=== PATIENT | male | born 1955 | race Hispanic/Latino ===

== ENCOUNTER 2019-04-22 11:41 | Emergency (ER) | payer MEDICARE ==
[2019-04-22 12:28] LABS: #Basophils 0.1 thou/uL (0.0-0.2); #Eosinphils 0.1 thou/uL (0.0-0.7); #Monocytes 0.4 thou/uL (0.11-0.59); #Neutrophils 4.2 thou/uL (1.40-6.50); %Basophils 0.9 % (0.0-1.0); %Eosinophils 1.8 % (0.0-10.0); %Lymphocytes 29.2 % (21.0-51.0); %Neutrophils 62.1 % (42.0-75.0); Mean Corpuscular HGB CONC 33.6 g/dL (32.0-36.0); Mean Corpuscular Hemoglobin 28.6 pg (27.0-31.0); Mean Platelet Volume 7.9 fL (7.4-10.4); Platelet Count 122 thou/uL (130-400); RBC Distribution Width 15.4 % (11.5-14.5); Red Blood Cell (RBC) Count 4.19 mill/uL (4.70-6.10); White Blood Cell (WBC) Count 6.7 thou/uL (4.8-10.8)
== END 2019-04-22 13:37 | disposition home or self-care (01) ==
LOC: ERS 11:41
DX: H11.31 Conjunctival hemorrhage, right eye (principal)
CPT/HCPCS: 36415; 85025; 99283

== ENCOUNTER 2019-04-22 23:41 | Emergency (ER) | payer MEDICARE ==
[2019-04-23] MEDS ORDERED: Ibuprofen 200 MG TAB ONE (01:29)
[2019-04-23] MEDS ORDERED: HYDROcodone/Acetaminophen 5/325 mg Tablet ONE (07:13)
[2019-04-23] MEDS ORDERED: Acetaminophen 500 MG TAB ONE (07:13)
--- NOTE | 2019-04-23 08:42 | RAD ---
EXAM: XR Knee Rt 4 View STANDARD PROVIDED CLINICAL HISTORY: Pain FINDINGS: There is no evidence for fracture or other acute osseous abnormality. Alignment appears anatomic. Masha nt spaces appear preserved. Mild knee joint effusion. Vascular calcifications. IMPRESSION: No evidence for an acute osseous abnormality. If there is persistent clinical concern, conservative m anagement and follow-up imaging advised.
--- NOTE | 2019-04-23 08:49 | RAD ---
Exam:4 views left hand HISTORY: Pain. Injury. COMPARISON: None FINDINGS: Mildly displaced fracture involving the base of the fifth metacarpal. Associated soft tissu e swelling. Additional fractures. IMPRESSION: Proximal fifth metacarpal fracture. Results study discussed with Dr. Clark 04/23/2019 at 8:46 AM Code CR
== END 2019-04-23 08:03 | disposition home or self-care (01) ==
LOC: ERS 23:41
DX: S62.315A Displaced fracture of base of fourth metacarpal bone, left hand, initial encounter for closed fracture (principal); S80.01XA Contusion of right knee, initial encounter; Z79.899 Other long term (current) drug therapy; W01.198A Fall on same level from slipping, tripping and stumbling with subsequent striking against other object, initial encounter
CPT/HCPCS: 26600

== ENCOUNTER 2020-01-12 18:36 | Inpatient (IN) | payer MEDICARE ==
[2020-01-12 18:51] LABS: #Basophils 0.1 thou/uL (0.0-0.2); #Eosinphils 0.1 thou/uL (0.0-0.7); #Lymphocytes 2.1 thou/uL (1.20-3.40); #Monocytes 0.7 thou/uL (0.11-0.59); %Basophils 0.9 % (0.0-1.0); %Eosinophils 1.3 % (0.0-10.0); %Lymphocytes 20.8 % (21.0-51.0); %Monocytes 7.3 % (0.0-10.0); %Neutrophils 69.8 % (42.0-75.0); Hemoglobin 13.7 g/dL (14.0-18.0); Mean Corpuscular HGB CONC 33.7 g/dL (32.0-36.0); Mean Corpuscular Hemoglobin 29.4 pg (27.0-31.0); Mean Corpuscular Volume 87.2 fL (78.0-98.0); Mean Platelet Volume 7.9 fL (7.4-10.4); Platelet Count 172 thou/uL (130-400); RBC Distribution Width 14.9 % (11.5-14.5); Red Blood Cell (RBC) Count 4.65 mill/uL (4.70-6.10); White Blood Cell (WBC) Count 10.1 thou/uL (4.8-10.8)
[2020-01-12 18:58] LABS: INR-International Normal Ratio 0.9; PTT 26.8 SEC (22.9-36.1); Prothrombin Time 12.3 SEC (12.0-14.7)
--- NOTE | 2020-01-12 19:04 | CT ---
Exam: Head CT without contrast HISTORY: Sudden weakness, x2 days. Woke up this morning with left facial numbness. COMPARISON: none FINDINGS: Hemorrhage: No intraparenchymal hemorrhage or extra-axial hematoma. Brain parenchyma: Cortical calvillo-white matter differentiation is preserved. No mass effect or midline shift. Basilar cisterns are patent.0.4 cm hypodensity in the right caudate nucleus. Indeterminate lacunar infarct. Ventricular system: Ventricles and sulci are patent and symmetric. Calvarium: Intact. Sinuses and mastoid air cells: Minimal right sphenoid sinus disease. Adequate mastoid air cell aerati on. IMPRESSION: 1. Indeterminate right caudate nucleus lacunar infarct. 2. Results of study discussed with Dr. Clark 01/12/2020 at 7:01 PM Code CR
[2020-01-12 19:09] LABS: ALT (SGPT) 11 U/L (8-55); AST (SGOT) 11 U/L (5-34); Albumin 4.4 g/dL (3.4-4.8); Alkaline Phosphatase 69 U/L (40-110); Anion Gap 13 mmol/L (10-20); BUN (Urea Nitrogen) 10 mg/dL (8.4-25.7); CK (CPK) 65 U/L (30-200); Calc. Creatinine Clearance 0 mL/min (70-130); Calcium 8.9 mg/dL (7.8-10.44); Carbon Dioxide 23 mmol/L (23-31); Chloride 106 mmol/L (98-107); Estimated GFR-MDRD 64; Globulin 2.6 g/dL (2.4-3.5); Glucose 200 mg/dL (80-115); Potassium 3.5 mmol/L (3.5-5.1); Sodium 138 mmol/L (136-145)
[2020-01-12] MEDS ORDERED: Aspirin 325 MG TAB ONE (19:57)
[2020-01-12] MEDS ORDERED: hydrALAZINE 20 MG/ML VIAL SLOW IVP PRN (20:58)
[2020-01-12] MEDS ORDERED: Labetalol HCl 100 MG/20 ML VIAL SLOW IVP PRN (20:58)
[2020-01-12] MEDS ORDERED: Dextrose 5% in Water 1,000 ML IV PRN (21:02)
[2020-01-12] MEDS ORDERED: HumaLOG 300 UNITS/3 ML VIAL SC PRN ×2 (21:02)
[2020-01-12] MEDS ORDERED: Dextrose 50% Abboject 50 ML SYRINGE SLOW IVP PRN (21:02)
--- NOTE | 2020-01-12 21:21 | PDOC.HHP ---
Hospitalist HPI - History of Present Illness Left sided weakness History of Present Illness: PCP: Sarah Zambrano The patient is a 64/M with PMH significant for CML (taking Tasigna) that presents to the ER for the above complaint. The patient reports developing lip and tongue numbness Wednesday evening while eating chips with spicy dip. He did not think anything of this so he went to bed. The next morning, he awoke with some left hand weakness, stating that he could not hold his coffee cup steady. His spouse noticed that he was "stumbling around" and asked "are you drinking?" , knowing that he does not drink alcohol, but had this unsteady gait. The patient symptoms persisted and the next morning, he and his noticed some slurring with his speech, so they came to the ER. The patient has been taking Tasigna since September of 2019, and states that his oncologist at [facility] told him that the medication will raise your blood sugar and that there is risk of CVA and [place]. The patient denies any fever or chills. Denies any chest pain or sob. Denies any abdominal pain, n/v/d. Has no other complaints at this time. ED Course: NIH 3, LUE, LLE and left facial droop CT brain + for indeterminant right caudate nucleus lacunar infarct Glucose 202 CMP and CBC unremarkable Given: ASA 324mg po x 1 dose Allergies: Codeine Home Meds: 1. Metformin 750mg po q evening 2. Tasigna 200mg, Take 2 tablets BID 3. Flomax 0.4mg po q am Hospitalist ROS - Review of Systems Constitutional: denies: fever, chills, sweats, weakness, malaise, other Eyes: denies: pain, vision change, conjunctivae inflammation, eyelid inflammation, redness, other ENT: reports: other (lip and tongue numbness) Respiratory: denies: cough, dry, shortness of breath, hemoptysis, SOB with excertion, pleuritic pain, sputum, wheezing, other Cardiovascular: denies: chest pain, palpitations, orthopnea, paroxysmal noc. dyspnea, edema, light headedness, other Gastrointestinal: denies: nausea, vomiting, abdominal pain, diarrhea, constipation, melena, hematochezia, other Genitourinary: denies: dysuria, frequency, incontinence, hematuria, retention, other Musculoskeletal: denies: neck pain, shoulder pain, arm pain, back pain, hand pain, leg pain, foot pain, other Skin: denies: rash, lesions, radha, bruising, other Neurological: reports: weakness, numbness, change in speech (Left sided weakness ) Hospitalist History - Past Medical History Source: patient Heme/Onc: reports: Cancer (CML in remission) Renal/: reports: Benign prostatic enlarg. 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 Activity level: independent ambulation - Exam General Appearance: NAD, awake alert Eye: anicteric sclera ENT: normocephalic atraumatic Neck: supple, no lymphadenopathy Heart: RRR, no murmur, no gallops, no rubs, normal peripheral pulses Respiratory: CTAB, no wheezes, no rales, no tachypnea Gastrointestinal: soft, non-tender, non-distended, normal bowel sounds, no guarding, no rigidity Extremities: no cyanosis, no edema Skin: no rashes Neurological - other findings: GCS 15, NIH 3 for left facial droop and LUE and LLE drift Musculoskeletal - other findings: 4/5 LUE and LLE power scale Psychiatric: normal affect, A&O x 3 Hospitalist Results - Labs Result Diagrams: 01/12/20 18:41 01/12/20 18:41 Lab results: WBC 10.1 thou/uL (4.8-10.8) 01/12/20 18:41 Hgb 13.7 g/dL (14.0-18.0) L 01/12/20 18:41 Hct 40.6 % (42.0-52.0) L 01/12/20 18:41 MCV 87.2 fL (78.0-98.0) 01/12/20 18:41 Plt Count 172 thou/uL (130-400) 01/12/20 18:41 Neutrophils % 69.8 % (42.0-75.0) 01/12/20 18:41 Sodium 138 mmol/L (136-145) 01/12/20 18:41 Potassium 3.5 mmol/L (3.5-5.1) 01/12/20 18:41 Chloride 106 mmol/L (98-107) 01/12/20 18:41 Carbon Dioxide 23 mmol/L (23-31) 01/12/20 18:41 BUN 10 mg/dL (8.4-25.7) 01/12/20 18:41 Creatinine 1.15 mg/dL (0.7-1.3) 01/12/20 18:41 Glucose 200 mg/dL (80-115) H 01/12/20 18:41 Calcium 8.9 mg/dL (7.8-10.44) 01/12/20 18:41 Total Bilirubin 1.0 mg/dL (0.2-1.2) 01/12/20 18:41 AST 11 U/L (5-34) 01/12/20 18:41 ALT 11 U/L (8-55) 01/12/20 18:41 Alkaline Phosphatase 69 U/L (40-110) 01/12/20 18:41 Creatine Kinase 65 U/L (30-200) 01/12/20 18:41 Troponin I Less than 0.010 ng/mL (< 0.028) 01/12/20 18:41 Serum Total Protein 7.0 g/dL (5.8-8.1) 01/12/20 18:41 Albumin 4.4 g/dL (3.4-4.8) 01/12/20 18:41 - EKG Interpretation EKG: NSR 77 with 1 degree AVB - Radiology Interpretation CT scan - head Status: report reviewed by nm Hospitalist H&P A/P - Problem (1) CVA (cerebral vascular accident) Code(s): I63.9 - CEREBRAL INFARCTION, UNSPECIFIED Status: Acute Assessment and Plan: Admit to stroke unit, inpatient status Expected length of stay > [address] + right caudate nucleus lacunar infarct Received ASA in ER Will continue ASA and start high intensity statin Will order MRI, CD US, and echocardiogram Consult stroke team Check TSH, FLP, UDS (2) Elevated serum glucose Code(s): R73.9 - HYPERGLYCEMIA, UNSPECIFIED Status: Chronic Assessment and Plan: Likely secondary to oncology medication Will hold Tasigna Will Check HA1C and start sliding scale AC/HS accuchecks. (3) Marijuana use Code(s): F12.90 - CANNABIS USE, UNSPECIFIED, UNCOMPLICATED Status: Chronic Assessment and Plan: Smokes 2 per day Discussed marijuana cessation (4) CML in remission Code(s): C92.11 - CHRONIC MYELOID LEUKEMIA, BCR/ABL-POSITIVE, IN REMISSION Status: Chronic Assessment and Plan: Patient taking Tasigna since September 2019 Has known risk of CVA and [place] Will hold medication for now - Plan Plan: GI and DVT prophylaxis Full Code DPOA is spouse Madeline Apple at [phone] Egan.
[2020-01-12 21:50] LABS: Hemoglobin A1c 6.6 % (4.0-6.0)
[2020-01-12] MEDS: Atorvastatin Calcium 40 MG TAB PO SCH (22:17)
[2020-01-12] MEDS ORDERED: Acetaminophen 325 MG TAB PO PRN (22:33)
[2020-01-12 22:39] VITALS: BMI 22.9
[2020-01-13 01:22] LABS: Amphetamine Not Detected (NotDetected); Barbiturates Screen Not Detected (NotDetected); Benzodiazepine Screen Not Detected (NotDetected); Cocaine Metabolite Screen Not Detected (NotDetected); Medtox Control Line Valid? VALID (VALID); Medtox Reader # READER 4; Methadone Not Detected (NotDetected); Methamphetamine Not Detected (NotDetected); Opiate Screen Not Detected (NotDetected); Oxycodone Screen Not Detected (NotDetected); Phencyclidine (PCP) Not Detected (NotDetected); THC/Cannabinoid Screen Detected (NotDetected); Tricyclic Screen Not Detected (NotDetected)
[2020-01-13 04:34] LABS: #Basophils 0.1 thou/uL (0.0-0.2); #Eosinphils 0.3 thou/uL (0.0-0.7); #Lymphocytes 2.2 thou/uL (1.20-3.40); #Monocytes 0.7 thou/uL (0.11-0.59); #Neutrophils 5.3 thou/uL (1.40-6.50); %Basophils 0.8 % (0.0-1.0); %Eosinophils 3.4 % (0.0-10.0); %Lymphocytes 26.1 % (21.0-51.0); %Monocytes 8.1 % (0.0-10.0); %Neutrophils 61.6 % (42.0-75.0); Hemoglobin 13.1 g/dL (14.0-18.0); Mean Corpuscular HGB CONC 33.4 g/dL (32.0-36.0); Mean Corpuscular Hemoglobin 29.5 pg (27.0-31.0); Mean Corpuscular Volume 88.3 fL (78.0-98.0); Mean Platelet Volume 8.2 fL (7.4-10.4); Platelet Count 156 thou/uL (130-400); Red Blood Cell (RBC) Count 4.44 mill/uL (4.70-6.10); White Blood Cell (WBC) Count 8.6 thou/uL (4.8-10.8)
[2020-01-13 04:56] LABS: Anion Gap 13 mmol/L (10-20); BUN (Urea Nitrogen) 10 mg/dL (8.4-25.7); Calc. Creatinine Clearance 90 mL/min (70-130); Calcium 8.7 mg/dL (7.8-10.44); Carbon Dioxide 22 mmol/L (23-31); Cardiac Risk 6.6 (Less than 4.5); Chloride 107 mmol/L (98-107); Cholesterol 166 mg/dl (< 200 Desired); Estimated GFR-MDRD Greater than 90; Glucose 117 mg/dL (80-115); HDL Cholesterol 25 mg/dL (>60 Neg Risk); LDL Cholesterol, Calculated 120 mg/dL; Potassium 3.4 mmol/L (3.5-5.1); Sodium 139 mmol/L (136-145); Triglycerides 103 mg/dL (Less than 150)
[2020-01-13] MEDS ORDERED: Lorazepam 2 MG/ML VIAL SLOW IVP SCH (06:45)
[2020-01-13] MEDS: Aspirin 325 mg Enteric Coated Tablet PO SCH (08:50)
[2020-01-13] MEDS: Famotidine 20 MG TAB PO SCH ×2 (08:50→21:06)
[2020-01-13] MEDS: Enoxaparin Sodium 40 MG/0.4 ML SYRINGE SC SCH (08:50)
--- NOTE | 2020-01-13 10:19 | ULT ---
CAROTID DUPLEX ULTRASOUND: FINDINGS: Real-time color doppler evaluation of the right and left carotid systems was performed. This shows fairly prominent plaque formation, calcified plaque bilaterally at the carotid bifurcation s. On the right side, peak systolic velocities of the common carotid were 85 cm/sec. Internal carotid ve locity 61 cm/sec, and external carotid velocities 57 cm/sec. Left side showed peak systolic velocities of the common carotid 98 cm/sec, internal carotid velocitie s 65 cm/sec, external carotid velocities 110 cm/sec. Vertebral flow is antegrade on the right. The left vertebral is not visualized. IMPRESSION: 1. No evidence of hemodynamically significant stenosis of either internal carotid artery. 2. Nonvisualization of the left vertebral. POS: NANI
[2020-01-13] MEDS ORDERED: Potassium Chloride 20 MEQ TAB PO SCH (11:30)
--- NOTE | 2020-01-13 11:35 | MRI ---
MRI BRAIN PERFORMED WITHOUT CONTRAST ENHANCEMENT: History: Left sided weakness x 2 days, left facial numbness. Comparison: CT performed yesterday. FINDINGS: The ventricular and cisternal systems shows fairly age appropriate change. The diffusion weighted seq uence shows no signs of hemorrhage. A small lacunar infarct is seen in the right caudate nucleus romi on. It does not appear acute. There does appear to be an area of restricted diffusion within the righ t cerebral peduncle compatible with an acute area of infarct. This would be related to the posterior circulation. Supply being from a posterior communicating branch. There is no mass effect. The pituita ry is unremarkable in appearance. Mastoid air cells and visualized sinuses are clear. IMPRESSION: 1. Focus of restricted diffusion in the right cerebral peduncle, consistent with an area of acute inf arct. This is a small focus, less than 1 cm in size. In this location this would be related to the po sterior circulation. POS: NANI
--- NOTE | 2020-01-13 19:15 | PDOC.HOSPP ---
- Subjective Encounter Date: 01/13/20 Encounter Time: 11:00 Subjective: The patient was noted to be very drowsy this morning. Patient received IV ativan prior to MRI. When OT evaluated patient he woke up and was oriented time s four. In the afternoon, the patient fell to his knees per nursing, did not hit head or pass out. - Objective Vital Signs & Weight: Vital Signs (12 hours) Temp Pulse Resp BP BP BP Pulse Ox 01/13/20 15:19 97.5 F L 46 L 20 142/68 H 97 01/13/20 11:09 97.5 F L 51 L 18 181/85 H 98 01/13/20 08:56 174/85 H 194/88 H Weight Weight 160 lb I&O: 01/12/20 01/13/20 01/14/20 06:59 06:59 06:59 Intake Total 480 Output Total 150 Balance 330 Result Diagrams: 01/13/20 04:16 01/13/20 04:16 Additional Labs: Accuchecks 01/13/20 01/13/20 01/13/20 17:02 11:20 05:42 POC Glucose 94 102 113 H Hospitalist ROS - Review of Systems Constitutional: denies: fever, chills - Medication Medications: Active Medications Generic Name Dose Route Start Last Admin Trade Name Freq PRN Reason Stop Dose Admin Aspirin 325 mg 01/13/20 09:00 01/13/20 08:50 Ecotrin PO 325 mg DAILY LUIS Administration Atorvastatin Calcium 40 mg 01/12/20 21:00 01/12/20 22:17 Lipitor PO 40 mg HS LUIS Administration Enoxaparin Sodium 40 mg 01/13/20 09:00 01/13/20 08:50 Lovenox SC 40 mg 0900 LUIS Administration Famotidine 20 mg 01/13/20 09:00 01/13/20 08:50 Pepcid PO 20 mg BID LUIS Administration Sodium Chloride 10 ml 01/12/20 20:58 01/13/20 08:54 Flush - Normal Saline IVF 10 ml PRN PRN Administration Saline Flush - Exam General Appearance: NAD, awake alert Eye: PERRL, anicteric sclera ENT: normocephalic atraumatic, no oropharyngeal lesions Neck: no JVD Heart: RRR, no murmur, no gallops, no rubs Respiratory: CTAB, no wheezes, no rales, no ronchi Gastrointestinal: soft, non-tender, non-distended, normal bowel sounds, no hepatomegaly Extremities: no cyanosis, no clubbing, no edema Neurological: cranial nerve grossly intact, normal sensation to touch, no focal deficits, no new deficit Neurological - other findings: LUE 4/5 strength, difficult to assess if poor effort Musculoskeletal: normal tone, normal strength, no muscle wasting Psychiatric: normal affect, normal behavior, lethargic Psychiatric - other findings: intermittent Hosp A/P - Plan ECHO: EF 60-65, mild MR, mild TR This is 64 year old male who presented with left hand clumsiness, found to have stroke Right caudate nucleus infarct - noted on MRI brain and CT head - continue aspirin, statin. Currently on 325 mg aspirin. Pending neuro consult - A1c 6.6, LDL 120. - ECHO unremarkable Acute encephalopathy - likely from ativan. Will continue to monitor S/p fall - continue with PT Hypokalemia - potassium 3.4, s/p replacement Type II diabetes - hemoglobin 6.6, continue sliding scale Marijuana abuse - noted on UTox Code status: full code
[2020-01-13] MEDS ORDERED: Folic Acid 1 MG TAB PO SCH (19:30)
[2020-01-13] MEDS: Atorvastatin Calcium 40 MG TAB PO SCH (21:05)
[2020-01-14] MEDS: Enoxaparin Sodium 40 MG/0.4 ML SYRINGE SC SCH (08:47)
[2020-01-14] MEDS: Famotidine 20 MG TAB PO SCH (08:47)
[2020-01-14] MEDS: Aspirin 325 mg Enteric Coated Tablet PO SCH (08:47)
[2020-01-14] MEDS ORDERED: Amlodipine 5 MG TAB PO SCH ×2 (09:00→12:30)
[2020-01-14] MEDS ORDERED: Tamsulosin HCl 0.4 MG CAP PO SCH (09:00)
[2020-01-14] MEDS ORDERED: Folic Acid 1 MG TAB PO SCH (09:00)
--- NOTE | 2020-01-14 11:07 | CON ---
DATE OF CONSULTATION: 01/14/2020 CONSULTING PHYSICIAN: Hospitalist Service. IMPRESSION: 1. 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 2. Chronic myelogenous leukemia. 3. Hyperlipidemia. PLAN: 1. Aspirin 325 mg per day. 2. Full-dose statin. 3. Follow up with his oncologist. HISTORY OF PRESENT ILLNESS: Mr. Apple is a 64-year-old gentleman with a history of CML. He is on a regimen that apparently increases the blood sugar. He came in with complaints of left-sided weakness. He was noted to be mildly hyperglycemic with sugars above 200. His MRI revealed an area of acute ischemia in the right midbrain. Carotid ultrasound did not show any evidence of stenosis. Echocardiogram showed a normal ejection fraction of 55% to 60%. His cholesterol ratio was 6.0. He has otherwise been stable. He reports the left-sided weakness is improving. Denies a history of prior stroke or other risk factors. MEDICATIONS: List reviewed. ALLERGIES: CODEINE. SOCIAL HISTORY: No tobacco use. FAMILY HISTORY: Noncontributory. REVIEW OF SYSTEMS: Ten-system review of systems is otherwise negative. PHYSICAL EXAMINATION: GENERAL: He is a healthy-appearing middle-aged man, in no acute distress. VITAL SIGNS: Have been stable. He is afebrile. HEENT: Pupils equal and reactive. Conjunctivae clear. Oropharynx clear. NECK: Supple. No lymphadenopathy. EXTREMITIES: No cyanosis or edema. NEUROLOGIC: He is alert and cooperative. His speech is fluent and clear. He has a left facial droop. There is some dysmetria on the left, but he has good antigravity strength. He can walk with the use of a walker. Sensation is intact to touch. No abnormal movements are seen. IMAGING STUDIES: EKG shows normal sinus rhythm. Imagingwas reviewed. SUMMARY: A 64-year-old gentleman with a small vessel stroke in the mid brain. His symptoms are improving. I agree with your treatment plan. He can follow up with his oncologist. I would be happy to see him as an outpatient. Job ID: [id number]
[2020-01-14 12:04] VITALS: BP 160/73; TEMP 98.1
--- NOTE | 2020-01-14 16:38 | DIS ---
DATE OF ADMISSION: 01/12/2020 DATE OF DISCHARGE: 01/14/2020 DISCHARGE DIAGNOSES: 1. Right caudate nucleus infarct. 2. Acute encephalopathy. 3. Status post fall. 4. Hypokalemia. 5. Marijuana abuse. 6. Type 2 diabetes. CONSULTATIONS: Gomez Hutton MD, with Neurology. PROCEDURE PERFORMED: Echocardiogram on 01/12. BRIEF HISTORY OF PRESENT ILLNESS: This is a 64-year-old male with a past medical history of diabetes, BPH, CML, who presented to the emergency room with lip and tongue numbness. He also reported some left hand weakness. The patient reports taking Tasigna for CML and was told that this can cause a stroke. He presented to the emergency room for further evaluation. CT scan of his brain in the ER showed a right caudate nucleus lacunar infarct. The patient was given aspirin 324 mg and admitted for further workup. HOSPITAL COURSE: Acute right caudate nucleus infarct: The patient had a CT scan of his head which showed a right caudate nucleus infarct. MRI of his brain on the showed a focus of restricted diffusion in the right cerebral peduncle. He did have a carotid Doppler done which showed no significant stenosis. He was started on atorvastatin 40 mg at bedtime and aspirin 325 mg daily. The patient did have a fall while in the hospital where he was in the bathroom on 01/12 when he got up from the toilet. He slightly lost his balance and fell on his knees. He was able to lift up his knees without any pain, therefore concern for fracture is not likely. He was seen by Physical Therapy, who recommended that he use a walker. He was seen by Neurology, who recommended treating him with aspirin 325 and atorvastatin. He did have an echocardiogram done on the which showed no evidence of a thrombus. The patient requested discharge given that he is trying to sign some papers to move into a new house. He should follow up with his PCP in a week. Hypertensive emergency: The patient had presented with a blood pressure of 180 systolic with an acute stroke. He was started on amlodipine 5 mg with improvement in his blood pressure to 160. He was discharged with amlodipine 10 mg and should follow up with his PCP in a week for additional blood pressure titration. Folic acid deficiency anemia: The patient was noted to have a hemoglobin of 13.1. His folic acid levels were noted to be 6.60. B12 level was 684. He is discharged on folic acid supplementation. Type 2 diabetes: The patient's hemoglobin A1c was checked and it was 6.6. He will continue on his metformin as an outpatient. CML: The patient follows up with oncologist at [facility] and is on nilotinib. He will follow up with them whether to continue treatment or not. DISCHARGE PHYSICAL EXAMINATION: VITAL SIGNS: Temperature 98.1, heart rate 76, respiratory rate 25, O2 saturation 99% on room air, blood pressure 160/73. GENERAL: The patient is alert, awake, oriented x3. CVS: Regular rate and rhythm with no murmurs, rubs, or gallops. LUNGS: Clear to auscultation bilaterally. ABDOMEN: Positive bowel sounds, soft, nontender, nondistended. EXTREMITIES: No edema. NEURO: The patient has 5/5 strength in all 4 extremities. He has 5/5 sensation in all 4 extremities. PERTINENT LABORATORY DATA: CBC on 01/12: Hemoglobin 13.1, hematocrit 39.3. BMP on 01/12: Potassium 3.4. Lipid panel: Unremarkable except for LDL of 120. A1C: 6.6. Vitamin B12: 684. Folate: 6.60. AST: 11. ALT: 11. Alkaline phosphatase: 69. U-tox: Cannabinoids. IMAGING STUDIES: CT scan of the brain on 01/11: Indeterminate right caudate nucleus lacunar infarct. Carotid Doppler on 01/12: No significant stenosis. MRI brain on 01/12: Focus of restricted diffusion in the right cerebral peduncle consistent with an area of acute infarct. Echocardiogram on 01/12: EF 60% to 65%, mild MR, mild TR. Left atrium is rfef-al-nyjwkvocls dilated. DISCHARGE CONDITION: Stable. ACTIVITY: As tolerated. DIET: Diabetic diet. DISCHARGE MEDICATIONS: New prescriptions: 1. Amlodipine 10 mg p.o. daily. 2. Aspirin 325 mg p.o. daily. 3. Atorvastatin 40 mg p.o. at bedtime. 4. Folic acid 1 mg p.o. daily. CONTINUED MEDICATIONS: 1. Metformin 750 mg p.o. q.a.m. 2. Nilotinib 400 mg p.o. b.i.d. 3. Flomax 0.4 mg p.o. daily. DISCHARGE INSTRUCTIONS: The patient to follow up with his PCP and his oncologist within 1 to 2 weeks. He should have repeat CBC to further evaluate his anemia within 6 weeks. He should also have repeat BMP to assess resolution of his hypokalemia. Job ID: [id number] [facility]ER HOSPITALIvonne
--- NOTE | 2020-01-16 06:46 | PQF ---
STOCKTONTOMASA ELENA, NUBIA [id number] CLINICAL DOCUMENTATION CLARIFICATION FORM: POST DISCHARGE Addendum to original discharge summary date: ____ Late entry note date: __ DATE: 01/15/2020 ATTN: Nubia Trevino Please exercise your independent, professional judgment in responding to the clarification form. Clinical indicators are provided on the bottom of this form for your review Please check appropriate box(s): Encephalopathy: Etiology: [ ] Hypertensive [ ] Metabolic [ ] Toxic [ X ] Drug induced: [ ] Other condition: [ ] Other diagnosis please specify [ ] Unable to determine In addition, please specify: Present on Admission (POA): [ ] Yes [ X ] No [ ] Unable to determine For continuity of documentation, please document condition throughout progress notes and discharge summary. Thank You. CLINICAL INDICATORS - SIGNS / SYMPTOMS / LABS Laboratory 01/11 Glucose 200, POC 202, Potassium 3.4 CT brain Impression Right caudalate nucleus lacunar infarct H&P p1 01/11 Dr Rogers Pt developed lip and tongue numbness and the next morning , he awoke with some left hand weakness H&P p1 01/11 Dr Rogers NIH 3, LUE, REID and left facial droop. Glucose 202 H&P p4 01/11 Dr Rogers Elevated serum glucose likely secondary to oncology medication Hospitalist PN p1 01/12 Dr Smart The next morning was noted to be very drowsy Hospitalist PN p4 01/12 Dr Smart Acute encephalopathy likely from Ativan RISK FACTORS H&P p1 01/11 64 year-old Male H&P p1 01/11 CML H&P p2 01/11 Smoker H&P p4 01/11 CVA H&P p4 01/11 Marijuana use Hospitalist PN p4 01/12 Hypokalemia Hospitalist PN p4 01/12 -DM type 2 DS p2 01/13 HTN emergency DS p2 01/13 Folic acid Def anemia DS p1 01/13 s/p fall TREATMENTS: NOV 21 IVF NS 1L NOV 21 Aspirin 325 mg oral NOV [address] brain 01/11 MRI Brain 01/12 Carotid Doppler study 01/12 Neurology consult 01/13 Gomez Jarquin (This form is maintained as a part of the permanent medical record) 2014 [employer], [employer]. All Rights Reserved [email or web address]
== END 2020-01-14 13:15 | disposition home or self-care (01) | DRG 64 ==
LOC: ERS 18:36 → 2SE 20:22
PROVIDERS: ADMIT Internal Medicine; ATTEND Internal Medicine
DX: I63.81 Other cerebral infarction due to occlusion or stenosis of small artery (principal); G92 Toxic encephalopathy; G81.94 Hemiplegia, unspecified affecting left nondominant side; C92.11 Chronic myeloid leukemia, BCR/ABL-positive, in remission; I16.0 Hypertensive urgency; D52.9 Folate deficiency anemia, unspecified; F12.10 Cannabis abuse, uncomplicated; R29.810 Facial weakness; N40.0 Benign prostatic hyperplasia without lower urinary tract symptoms; F17.200 Nicotine dependence, unspecified, uncomplicated; E11.65 Type 2 diabetes mellitus with hyperglycemia; I10 Essential (primary) hypertension; R29.703 NIHSS score 3; R40.2362 Coma scale, best motor response, obeys commands, at arrival to emergency department; R40.2142 Coma scale, eyes open, spontaneous, at arrival to emergency department; R40.2252 Coma scale, best verbal response, oriented, at arrival to emergency department; E87.6 Hypokalemia; Z79.82 Long term (current) use of aspirin; Z88.5 Allergy status to narcotic agent; Z90.5 Acquired absence of kidney; Z79.899 Other long term (current) drug therapy; T42.4X5A Adverse effect of benzodiazepines, initial encounter
CPT/HCPCS: 36415; 36416; 70450; 70551; 80048; 80053; 80061; 80306; 82550; 82607; 82746; 83036; 84443; 84484; 85025; 85610; 85730; 93005; 93306; 93880; J1650; J2060

== ENCOUNTER 2020-10-26 15:03 | Emergency (ER) | payer MEDICARE ==
--- NOTE | 2020-10-26 15:35 | RAD ---
Chest AP view INDICATION: History of altered mental status COMPARISON: Chest 2 views dated January 20, 2018 FINDINGS: Lungs: The lungs are clear Cardiac silhouette: The cardiomediastinal silhouette appears within normal limits. Pulmonary vasculature: Normal Pleural spaces: No pleural effusion or pneumothorax is demonstrated. Upper abdomen: There is instrumentation involving the upper lumbar spine that is stable. Osseous structures: No acute osseous abnormality. Additional findings: None. IMPRESSION: No acute cardiopulmonary abnormality.
[2020-10-26] MEDS ORDERED: Promethazine HCl 25 MG/ML VIAL ONE (15:47)
[2020-10-26] MEDS ORDERED: Ondansetron PF 4 MG/2 ML Vial ONE (15:47)
[2020-10-26 16:08] LABS: Hemoglobin 8.5 g/dL (14.0-18.0); Mean Corpuscular HGB CONC 35.7 g/dL (32.0-36.0); Mean Corpuscular Hemoglobin 39.7 pg (27.0-31.0); Mean Platelet Volume 7.4 fL (7.4-10.4); Platelet Count 81 thou/uL (130-400); RBC Distribution Width 13.5 % (11.5-14.5); Red Blood Cell (RBC) Count 2.13 mill/uL (4.70-6.10); White Blood Cell (WBC) Count 3.6 thou/uL (4.8-10.8)
[2020-10-26 16:27] LABS: ALT (SGPT) 114 U/L (8-55); AST (SGOT) 201 U/L (5-34); Albumin 4.2 g/dL (3.4-4.8); Alkaline Phosphatase 342 U/L (40-110); Anion Gap 18 mmol/L (10-20); BUN (Urea Nitrogen) 11 mg/dL (8.4-25.7); Bilirubin, Total 1.5 mg/dL (0.2-1.2); Calc. Creatinine Clearance 0 mL/min (70-130); Calcium 8.7 mg/dL (7.8-10.44); Carbon Dioxide 21 mmol/L (23-31); Chloride 101 mmol/L (98-107); Globulin 2.5 g/dL (2.4-3.5); Glucose 117 mg/dL (80-115); Lipase 38 U/L (8-78); Protein, Total 6.7 g/dL (5.8-8.1); Sodium 136 mmol/L (136-145)
[2020-10-26 16:38] LABS: Band 3 % (5-11); Differential Comment Blast-Like Cell(s); Lymphocytes 28 % (21-51); MDiff Complete? YES; Macrocytosis SLIGHT = 6-15 cells (100X) (0-5/hpf); Neutrophil 59 % (42-75); Ovalocytes SLIGHT = 2-5 cells (100X) (0-1/hpf); Platelet Morphology Comment Appears Decreased; Polychromasia SLIGHT = 2-3 cells (100X) (0-2/hpf); Reflex for Review?? YES; Schistocytes SLIGHT = 2-5 cells (100X) (0-1/hpf)
[2020-10-26 17:19] LABS: Bacteria/HPF None Seen HPF (None Seen); Bilirubin Negative (Negative); Blood, Urine Negative (Negative); Clarity Clear (Clear); Glucose, Urine (Dipstick) Normal (Negative); Ketone, Urine Negative (Negative); Leukocyte Negative Leu/uL (Negative); Nitrite Negative (Negative); Protein, Urine (Dipstick) 30 mg/dL (Neg-Trace); RBC/HPF 0-3 HPF (0-3); Squamous Epithelial 0-3 HPF (0-3); Urobilinogen Normal mg/dL (Less than 2); WBC/HPF 0-3 HPF (0-3)
== END 2020-10-26 16:59 | disposition home or self-care (01) ==
LOC: ERS 15:03
DX: R11.2 Nausea with vomiting, unspecified (principal)
CPT/HCPCS: 71045; 80053; 81003; 81015; 83690; 85025; 85060; 93005; 96374; 96375; J2405; J2550

== ENCOUNTER 2020-10-27 20:57 | Emergency (ER) | payer MEDICARE ==
[2020-10-27 22:02] LABS: Hemoglobin 8.6 g/dL (14.0-18.0); Mean Corpuscular Hemoglobin 39.6 pg (27.0-31.0); Mean Platelet Volume 7.3 fL (7.4-10.4); Platelet Count 84 thou/uL (130-400); RBC Distribution Width 13.6 % (11.5-14.5); Red Blood Cell (RBC) Count 2.18 mill/uL (4.70-6.10); White Blood Cell (WBC) Count 3.4 thou/uL (4.8-10.8)
[2020-10-27 22:17] LABS: Band 6 % (5-11); Hypochromia SLIGHT = 6-15 cells (100X) (0-5/hpf); Lymphocytes 34 % (21-51); MDiff Complete? YES; Macrocytosis SLIGHT = 6-15 cells (100X) (0-5/hpf); Monocytes 10 % (0-10); Neutrophil 50 % (42-75)
[2020-10-27 22:21] LABS: ALT (SGPT) 168 U/L (8-55); AST (SGOT) 336 U/L (5-34); Albumin 4.2 g/dL (3.4-4.8); Alkaline Phosphatase 640 U/L (40-110); Anion Gap 16 mmol/L (10-20); BUN (Urea Nitrogen) 9 mg/dL (8.4-25.7); Bilirubin, Total 2.2 mg/dL (0.2-1.2); Calc. Creatinine Clearance 0 mL/min (70-130); Calcium 8.8 mg/dL (7.8-10.44); Carbon Dioxide 22 mmol/L (23-31); Chloride 105 mmol/L (98-107); Globulin 2.4 g/dL (2.4-3.5); Glucose 106 mg/dL (80-115); Potassium 3.4 mmol/L (3.5-5.1); Protein, Total 6.6 g/dL (5.8-8.1); Sodium 140 mmol/L (136-145)
--- NOTE | 2020-10-28 07:45 | CT ---
PRELIMINARY REPORT/[facility]/EMERGENCY AFTER HOURS PROCEDURE EXAM: CT Abdomen and Pelvis with Intravenous Contrast CLINICAL HISTORY: 65yo M with Hx of CML in remission presents for blood in his stools. Patient states over the past 2 d ays he has seen blood mixed in with his stool and dark black flakes. Patient denies any pain associated with this. He denies any nausea, vomiting. He denies being on any blood thinners outside o f aspirin. 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 He notes a history of hemorrhoids, however, the bleeding associated with that was never this bad. He denies any dizziness, near syncope. Last col onoscopy was greater than 10 years ago. Had 2 polyps at that time, denies ever being told he had diverticulosis. TECHNIQUE: Axial computed tomography images of the abdomen and pelvis with intravenous contrast. CONTRAST: With; 70ML ISOVUE 370 COMPARISON: None provided. FINDINGS: LUNG BASES: No basilar airspace consolidation or pleural effusion. LIVER: Unremarkable. GALLBLADDER AND BILE DUCTS: Unremarkable. No calcified stone. No ductal dilation. PANCREAS: Unremarkable. SPLEEN: Unremarkable. ADRENAL GLANDS: Unremarkable. KIDNEYS, URETERS, AND BLADDER: The right kidney is absent. The left kidney is normal size. No hydronephrosis. The partially fille d bladder is normal.. STOMACH AND BOWEL: No obstruction. No wall thickening. No CT evidence of colitis or acute diverticulitis. APPENDIX: No CT evidence for appendicitis. PERITONEUM: No free fluid. No free air. LYMPH NODES: No lymphadenopathy. REPRODUCTIVE: Unremarkable as visualized. VASCULATURE: No aortic aneurysm. BONES: No fracture or suspicious osseous abnormality. ABDOMINAL WALL AND SOFT TISSUES: Unremarkable. IMPRESSION: There is no evidence of intestinal or urinary tract obstruction. No ileus or enteritis.. ELECTRONICALLY SIGNED BY: Kristen Hill DO Oct 28, 2020 2:42:00 AM [employer] This report is intended for review by the ordering physician only, in accordance of law. If you recei ve this report in error, please call [facility] at [phone]. FINAL REPORT EXAM: CT ABDOMEN AND PELVIS HISTORY: Bloody stools, onset 2 days ago COMPARISON: 01/30/2017 Procedure: Multiple contiguous axial images were obtained and a CT of the abdomen and pelvis with IV contrast. C oronal reformats were performed. FINDINGS: Lower Chest: Chronic changes. Vessels: Atherosclerosis without aneurysm. Heart: Normal heart size. Abdomen: Portal vein:Prominent portal vein. There is evidence of gastroesophageal and splenic varices. Gallbladder: Fluid in the gallbladder fossa. Liver: within normal limits. Pancreas: within normal limits. Spleen: within normal limits. Adrenals: within normal limits. Kidneys: Surgically absent right kidney. No evidence of left-sided obstructive uropathy. Peritoneum: No ascites or free air, no fluid collection. Bowel: Limited evaluation due to the lack of oral contrast administration. No evidence of bowel obstr uction. Ileocecal junction is unremarkable. Normal caliber appendix. Scattered fecal material in a nondistended, nondilated colon. Mesentery and Retroperitoneum: No enlarged mesenteric or retroperitoneal lymph nodes. Abdominal Wall: within normal limits. Pelvis: Reproductive Organs: Reproductive organs are unremarkable. Pelvis: No mass, lymphadenopathy, free air or free fluid. Bladder: within normal limits. Bones: within normal limits. IMPRESSION: 1. This report is in agreement with initial report by [facility]. 2. Evidence of gastroesophageal varices. 3. Nonspecific fluid in the gallbladder fossa, similar to the previous exam. 4. No acute abnormality in the abdomen or pelvis. Transcribed Date/Time: 10/28/2020 8:03 AM
[2020-10-28] MEDS ORDERED: Iopamidol 370 76% 100 ML VIAL ONE (09:59)
== END 2020-10-28 03:46 | disposition home or self-care (01) ==
LOC: ERS 20:57
DX: K92.1 Melena (principal); C92.10 Chronic myeloid leukemia, BCR/ABL-positive, not having achieved remission
CPT/HCPCS: 36415; 74177; 80053; 85025; 86850; 86900; 86901; Q9967